=== PATIENT | male | born 1995 | race Caucasian/White ===

== ENCOUNTER 2023-11-24 23:44 | Emergency (ER) | payer OTHER ==
[~2023-11-24] VITALS: Ht 177.8 cm; Wt 134.0 kg
[2023-11-24 23:59] VITALS: BP 122/77; PULSE 76; RESP 20; TEMP 98.4; O2SAT 98
== END 2023-11-25 00:56 | disposition home or self-care (01) ==
LOC: ER 23:44
DX: K62.89 Other specified diseases of anus and rectum (principal)
CPT/HCPCS: 99283

== ENCOUNTER 2024-04-15 21:11 | Emergency (ER) | payer MEDICAID ==
[~2024-04-15] VITALS: Ht 177.8 cm; Wt 127.5 kg
[2024-04-15 21:17] VITALS: BP 150/100; PULSE 62; O2SAT 98
[2024-04-15] MEDS ORDERED: CEPH-585 PO (21:56)
[2024-04-15] MEDS ORDERED: SULF1TAB49 PO (21:56)
[2024-04-15] MEDS ORDERED: NAPR-56 PO (21:56)
[2024-04-15 22:06] VITALS: RESP 16; TEMP 97.7
== END 2024-04-15 22:09 | disposition home or self-care (01) ==
LOC: ER 21:11
DX: K65.1 Peritoneal abscess (principal)
CPT/HCPCS: 99283

== ENCOUNTER 2024-09-30 23:49 | Emergency (ER) | payer MEDICAID, OTHER ==
[~2024-09-30] VITALS: Ht 175.3 cm; Wt 131.8 kg
[2024-09-30 23:49] VITALS: TEMP 98.4
[~2024-09-30 23:49] MED LIST: CEPH-585 PO
[2024-10-01] MEDS: ondansetron/PF 4mg/2ml inj IV ONE (01:38)
[2024-10-01] MEDS: normal saline 1000ml 1,000 ML IV ONE (01:38)
[2024-10-01 01:42] LABS: BASOPHILS % (AUTO) 0.5 % (0-1); EOSINOPHILS # (AUTO) 0.2 X10'3 (0-0.9); EOSINOPHILS % (AUTO) 1.8 % (0-6); HEMATOCRIT 41.3 % (42.0-52.0); HEMOGLOBIN 13.8 g/dl (14.0-17.9); LYMPHOCYTES # (AUTO) 1.9 X10'3 (1.1-4.8); LYMPHOCYTES % (AUTO) 20.1 % (21-51); MEAN CORPUSCULAR HEMOGLOBIN 26.7 PG (27.0-31.0); MEAN CORPUSCULAR HGB CONC 33.3 g/dL (33.0-36.5); MEAN CORPUSCULAR VOLUME 80.2 FL (78-98); MEAN PLATELET VOLUME 8.2 FL (7.4-10.4); MONOCYTES % (AUTO) 10.5 % (2-12); NEUTROPHILS # (AUTO) 6.5 X10'3 (1.8-7.7); NEUTROPHILS % (AUTO) 67.1 % (42-75); PLATELET COUNT 221 X10'3 (140-440); RED BLOOD COUNT 5.15 X10'6 (4.70-6.10); WHITE BLOOD COUNT 9.7 X10'3 (4.5-11.0)
[2024-10-01 01:57] LABS: ALANINE AMINOTRANSFERASE 45 U/L (12-78); ALBUMIN 3.8 G/DL (3.4-5.0); ALKALINE PHOSPHATASE 70 IU/L (46-116); ANION GAP 9 (8-16); ASPARTATE AMINO TRANSFERASE 25 U/L (10-37); BILIRUBIN,TOTAL 0.3 MG/DL (0.1-1.0); BLOOD UREA NITROGEN 18 MG/DL (7-18); BUN/CREATININE RATIO 17.3 (10.0-20.0); CALCIUM 8.4 MG/DL (8.5-10.1); CHLORIDE 105 MMOL/L (99-107); CREATININE 1.04 MG/DL (0.60-1.10); GLUCOSE 96 MG/DL (70-104); LIPASE 24 U/L (16-77); POTASSIUM 3.7 MMOL/L (3.5-5.1); SODIUM 141 MMOL/L (135-145); TOTAL CARBON DIOXIDE 27.2 MMOL/L (24-32); TOTAL PROTEIN 7.6 G/DL (6.4-8.2); eCRCL 105 ML/MIN; eGFR 84 ML/MIN
[2024-10-01 03:24] LABS: BILIRUBIN,URINE NEGATIVE (Neg); CLARITY,URINE SLIGHTLY CLOUDY (Clear); COLOR,URINE YELLOW (Yellow); GLUCOSE, URINE NEGATIVE (Neg); KETONES,URINE NEGATIVE (Neg); LEUKOCYTE ESTERASE ,URINE NEGATIVE (Neg); NITRITES, URINE NEGATIVE (Neg); OCCULT BLOOD,URINE NEGATIVE (Neg); PROTEIN,URINE NEGATIVE (Neg); UROBILINOGEN,URINE 0.2 E.U/dL (0.2-1.0)
[2024-10-01 03:48] LABS: UA COLLECTION TYPE CLN CATCH MIDSTREAM
[2024-10-01 03:49] LABS: BACTERIA,URINE FEW /HPF (Neg); MUCUS STRANDS FEW /LPF (Neg); RBC,URINE 0-2 /HPF (0-2); SQUAMOUS EPITHELIAL CELL,UR MANY /LPF (FEW)
[2024-10-01] MEDS ORDERED: ONDA-245 PO (03:57)
[2024-10-01 04:18] VITALS: BP 138/83; PULSE 70; RESP 16; O2SAT 98
== END 2024-10-01 04:23 | disposition home or self-care (01) ==
LOC: ER 23:49
DX: K52.9 Noninfective gastroenteritis and colitis, unspecified (principal); Z79.2 Long term (current) use of antibiotics
CPT/HCPCS: 36415; 76700; 80053; 81001; 83690; 84145; 85025; 96361; 96374; 99285; J2405; J7030

== ENCOUNTER 2025-03-07 19:40 | Emergency (ER) | payer MEDICAID, OTHER ==
[~2025-03-07] VITALS: Ht 177.8 cm; Wt 132.0 kg
[~2025-03-07 19:40] MED LIST changes: +ONDA-245 PO
[2025-03-07 20:21] LABS: BASOPHILS # (AUTO) 0.1 X10'3 (0-0.2); BASOPHILS % (AUTO) 0.5 % (0-1); EOSINOPHILS % (AUTO) 0.3 % (0-6); HEMATOCRIT 43.8 % (42.0-52.0); HEMOGLOBIN 14.6 g/dl (14.0-17.9); LYMPHOCYTES # (AUTO) 2.7 X10'3 (1.1-4.8); LYMPHOCYTES % (AUTO) 22.3 % (21-51); MEAN CORPUSCULAR HEMOGLOBIN 26.5 PG (27.0-31.0); MEAN CORPUSCULAR HGB CONC 33.2 g/dL (33.0-36.5); MEAN CORPUSCULAR VOLUME 79.6 FL (78-98); MONOCYTES # (AUTO) 0.9 X10'3 (0-0.9); NEUTROPHILS # (AUTO) 8.5 X10'3 (1.8-7.7); NEUTROPHILS % (AUTO) 69.9 % (42-75); PLATELET COUNT 216 X10'3 (140-440); RED BLOOD COUNT 5.51 X10'6 (4.70-6.10); RED CELL DISTRIBUTION WIDTH 14.2 % (11.5-14.5); WHITE BLOOD COUNT 12.2 X10'3 (4.5-11.0)
[2025-03-07 20:41] LABS: BILIRUBIN,URINE SMALL (Neg); CLARITY,URINE CLOUDY (Clear); COLOR,URINE YELLOW (Yellow); GLUCOSE, URINE NEGATIVE (Neg); KETONES,URINE 15 mg/dl (Neg); LEUKOCYTE ESTERASE ,URINE TRACE (Neg); NITRITES, URINE NEGATIVE (Neg); OCCULT BLOOD,URINE NEGATIVE (Neg); PROTEIN,URINE TRACE mg/dl (Neg); UROBILINOGEN,URINE 0.2 E.U/dL (0.2-1.0)
[2025-03-07 20:46] LABS: ALBUMIN 4.3 G/DL (3.4-5.0); ANION GAP 14 (8-16); BLOOD UREA NITROGEN 14 MG/DL (7-18); BUN/CREATININE RATIO 10.9 (10.0-20.0); CALCIUM 9.4 MG/DL (8.5-10.1); CHLORIDE 109 MMOL/L (99-107); CREATININE 1.28 MG/DL (0.60-1.10); GLUCOSE 92 MG/DL (70-104); POTASSIUM 3.3 MMOL/L (3.5-5.1); SODIUM 146 MMOL/L (135-145); THYROID STIMULATING HORMONE 2.06 ulU/ml (0.34-4.50); eCRCL 85 ML/MIN; eGFR 66 ML/MIN
[2025-03-07 20:46] LABS: UA COLLECTION TYPE CLN CATCH MIDSTREAM
[2025-03-07 20:47] LABS: ETHANOL < 10 MG/DL (<10)
[2025-03-07 20:49] LABS: BACTERIA,URINE 1+ /HPF (Neg); MUCUS STRANDS MANY /LPF (Neg); RBC,URINE 0-2 /HPF (0-2); SQUAMOUS EPITHELIAL CELL,UR FEW /LPF (FEW); WBC,URINE 20-30 /HPF (0-4)
[2025-03-07 20:53] LABS: URINE AMPHETAMINE SCREEN NEGATIVE (Neg); URINE BARBITUATE SCREEN NEGATIVE (Neg); URINE BENZODIAZEPINES SCREEN NEGATIVE (Neg); URINE CANNABINOID SCREEN POSITIVE (Neg); URINE COCAINE SCREEN NEGATIVE (Neg); URINE METHADONE SCREEN NEGATIVE (Neg); URINE OPIATE SCREEN NEGATIVE (Neg); URINE PHENCYCLIDINE SCREEN NEGATIVE (Neg)
[2025-03-07] MEDS ORDERED: NO HOME MEDS (21:05)
--- NOTE | 2025-03-07 21:42 | Physician Documentation ---
History of Present Illness ~ Chief Complaint: Mental Health Eval Stated Complaint: 5150 Time Seen by MD: 21:41 Primary Medical Doctor: Magdaleno Bell Mode of Arrival: Police HPI Patient presents to the emergency room brought in by police officers on a 5150 hold. Patient [place] Talking about church but oriented. He has no complaints at this time Medication Reconciliation Allergies: Coded Allergies: No Known Allergies (Unverified , 09/30/24) Miscellaneous Medications Home Med List (No Home Medications), (Reported) Discontinued Medications Cephalexin*Monohydrate* (Keflex*), 1 CAP PO QID Discontinued Reason: patient no longer taking Ondansetron 8mg ODT (Ondansetron Odt), 1 TAB PO Q6H Discontinued Reason: patient no longer taking Past Medical History Past Medical History: No Pertinent History Past Surgical History: no surgical history Alcohol Use: None Drug Use: none Lives In: Home Occupation: employed Review of Systems ROS All review of systems negative except as per HPI Physical Exam Vital Signs: Temperature: 99.5, Source: Oral, Heart Rate: 78, Respiratory Rate: 16, BP: 156/105, Pulse Oximetry: 98, Weight: 132.000 Oxygen Flow Rate: 0 Physical Exam General: Patient is sleeping and easily aroused, oriented x4 in no acute distress and well appearing.~ Head: Normocephalic and atraumatic. Eyes: Conjunctival normal. EOMI. PERRL. ENT: Mucous membranes moist. Neck: Supple, trachea is midline. Chest: Clear to auscultation bilaterally without rales, rhonchi, or wheezes. There is no accessory muscle use or retractions. Cardiac: RRR without murmurs, gallops, or rubs. Psych: Cooperative, good eye contact, normal affect Progress Results/Orders Results/Orders Orders - EMIGDIO ROMO MD Med Rec (03/07/25 19:58) Close Observation Level (03/07/25 19:58) Covid19 Binax Poc Result Entry (03/07/25 19:58) Regular Diet (03/08/25 Breakfast) Completed Orders - EMIGDIO ROMO MD Cbc/Diff (03/07/25 19:58) Drug Screen, Urine (03/07/25 19:58) Ethanol (03/07/25 19:58) TSH (03/07/25 19:58) BMP (03/07/25 19:58) Ua With Microscopic (03/07/25 18:15) Vital Signs 03/07/25 03/07/25 20:21 20:54 Temp 99.5 Pulse 78 Resp 16 16 B/P (MAP) 156/105 Pulse Ox 98 O2 Flow Rate 0 Laboratory Tests Test 03/07/25 18:15 03/07/25 20:05 03/07/25 20:10 Urine Specimen Description Cln catch midstream Urine Color Yellow Urine Clarity Cloudy Urine pH 6.0 Urine Specific [place] >=1.030 Urine Protein Trace Urine Glucose (UA) Negative Urine Ketones 15 H Urine Occult Blood Negative Urine Nitrite Negative Urine Bilirubin Small Urine Urobilinogen 0.2 Urine Leukocyte Esterase Trace H Urine RBC 0-2 Urine WBC 20-30 H Urine Squamous Epithelial Cells Few Urine Bacteria 1+ Urine Mucus Many Volume Urine Centrifuged 10 ml Urine Comment Urine Opiates Screen Negative Urine Methadone Screen Negative Urine Fentanyl Screen Negative Urine Barbiturates Screen Negative Urine Phencyclidine Screen Negative Urine Amphetamines Screen Negative Urine Benzodiazepines Screen Negative Urine Cocaine Screen Negative Urine Cannabinoids Screen Positive Drug Screen Comment White Blood Count 12.2 H Red Blood Count 5.51 Hemoglobin 14.6 Hematocrit 43.8 Mean Corpuscular Volume 79.6 Mean Corpuscular Hemoglobin 26.5 L Mean Corpuscular Hemoglobin Concent 33.2 Red Cell Distribution Width 14.2 Platelet Count 216 Mean Platelet Volume 9.0 Neutrophils (%) (Auto) 69.9 Lymphocytes (%) (Auto) 22.3 Monocytes (%) (Auto) 7.0 Eosinophils (%) (Auto) 0.3 Basophils (%) (Auto) 0.5 Neutrophils # (Auto) 8.5 H Lymphocytes # (Auto) 2.7 Monocytes # (Auto) 0.9 Eosinophils # (Auto) 0.0 Basophils # (Auto) 0.1 CBC Comment Sodium Level 146 H Potassium Level 3.3 L Chloride Level 109 H Carbon Dioxide Level 23.0 L Anion Gap 14 Blood Urea Nitrogen 14 Creatinine 1.28 H Estimated GFR/1.73 m2 66 BUN/Creatinine Ratio 10.9 Glucose Level 92 Calcium Level 9.4 Albumin 4.3 Thyroid Stimulating Hormone (TSH) 2.06 Chemistry Comments Ethyl Alcohol Level < 10 SARS-CoV-2 Antigen (Rapid) Negative Medical Decision Making Findings Patient presented to the emergency room brought in on 5150 hold. Differentials include but are not limited to schizophrenia, acute psychotic break, electrolyte disturbances, substance abuse therefore labs ordered. Patient is mildly dehydrated. He is tolerating oral fluids. Possible urinary tract infection and we will treat him for this. Mildly low potassium and we will supplement this. No other evidence for major pathologic derangements and patient is medically cleared for psychiatric evaluation Departure Disposition: 30 STILL A PATIENT Impression: Primary Impression: Hypokalemia Additional Impressions: Urinary tract infection Psychosis Condition: Guarded Referrals: NO PRIMARY CARE PROVIDER (PCP) Signature Scribe Signature: No scribe Attestation: The note accurately reflects work and decisions made by me.mEigdio Romo MD 03/07/25 21:58 EMIGDIO ROMO MD March 07, 2025 21:42
[2025-03-07] MEDS: potassium Cl 20 mEq SR tablet PO STA (21:58)
[2025-03-07] MEDS: cephalexin 250mg capsule PO ONE (22:00)
[2025-03-08] MEDS: diphenhydrAMINE 50 mg/ml inj IM ONE (00:24)
[2025-03-08] MEDS: MIDAZolam 5mg/ml 2ml vial IM ONE (00:24)
[2025-03-08] MEDS: haloperidol lactate 5mg/ml inj IM ONE (00:25)
[2025-03-08 16:50] VITALS: BP 121/73; PULSE 55; RESP 14; TEMP 97.6; O2SAT 99
== END 2025-03-08 15:05 | disposition left against medical advice (07) ==
LOC: ER 19:40
DX: E87.6 Hypokalemia (principal); F29 Unspecified psychosis not due to a substance or known physiological condition; N39.0 Urinary tract infection, site not specified; Z20.822 Contact with and (suspected) exposure to COVID-19
CPT/HCPCS: 36415; 80048; 80305; 80320; 81001; 84443; 85025; 87811; 96372; 99285; J1200; J1630; J2250

== ENCOUNTER 2025-03-22 22:30 | Emergency (ER) | payer MEDICAID ==
[~2025-03-22] VITALS: Ht 175.3 cm; Wt 142.2 kg
[~2025-03-22 22:30] MED LIST changes: -CEPH-585 PO; +LOSA50TA64 PO; -ONDA-245 PO
[2025-03-22 22:59] VITALS: BP 158/82; PULSE 80; RESP 16; TEMP 97.7; O2SAT 98
--- NOTE | 2025-03-23 00:09 | RADIOLOGY REPORT ---
CLINICAL INDICATION: FOOT PAIN TECHNIQUE: DI FOOT, COMPLETE (3VW MIN) Comparison: None FINDINGS/IMPRESSION: : There is no evidence of acute fracture or dislocation. Soft tissues are unremarkable.
== END 2025-03-23 03:20 | disposition left against medical advice (07) ==
LOC: ER 22:31
DX: M79.672 Pain in left foot (principal); Z53.21 Procedure and treatment not carried out due to patient leaving prior to being seen by health care provider
CPT/HCPCS: 73630

== ENCOUNTER 2025-04-05 23:20 | Emergency (ER) | payer MEDICAID ==
[~2025-04-05] VITALS: Ht 175.3 cm; Wt 138.6 kg
--- NOTE | 2025-04-05 23:44 | Physician Documentation ---
History of Present Illness ~ Chief Complaint: See Chief Complaint Stated Complaint: REACTION TO MEDICATION Time Seen by MD: 23:35 [facility] Patient presents to the emergency room for evaluation of agitation. He has been upset because his psychiatric doctor increased his lamotrigine this evening and he woke up from a nap he was very irritable which made him very mad at her. He denies any SI/HI in his not want to hurt anybody. He states he is just feeling very agitated and he needs to calm down in his here for help. Medication Reconciliation Allergies: Coded Allergies: No Known Allergies (Unverified , 03/08/25) Scheduled Losartan Potassium (Losartan Potassium), 50 MG PO DAILY Past Medical History Past Medical History: No Pertinent History Past Surgical History: no surgical history Patient History: FH: diabetes mellitus Maternal grandfather FH: factor V Leiden mutation Maternal grandfather Alcohol Use: None Drug Use: none Lives In: Home Occupation: employed Review of Systems ROS All review of systems negative except as per HPI Physical Exam Vital Signs: Temperature: 98.0, Heart Rate: 74, Respiratory Rate: 16, BP: 144/86, Pulse Oximetry: 99, Weight: 138.640 Oxygen Flow Rate: 0 Physical Exam General: Patient is awake, alert, oriented x4 in no acute distress Head: Normocephalic and atraumatic. Eyes: Conjunctival normal. EOMI. PERRL. ENT: Mucous membranes moist. Neck: Supple, trachea is midline. Chest: Clear to auscultation bilaterally without rales, rhonchi, or wheezes. There is no accessory muscle use or retractions. Cardiac: RRR without murmurs, gallops, or rubs. Psych: Cooperative, poor eye contact, irritable Progress Results/Orders Results/Orders Completed Orders - EMIGDIO ROMO MD Midazolam 5 Mg/Ml 2ml Inj (Versed 5 Mg/M (04/05/25 23:40) Medications Received in ER Medications (Trade) Dose Ordered Sig/Libby Route PRN Reason Start Time Stop Time Status Last Admin Dose Admin (Versed 5 MG/ML 2ML inj) 8 mg ONCE ONCE IM 04/05/25 23:40 04/05/25 23:52 DC 04/05/25 23:55 8 MG Vital Signs 04/05/25 23:29 Temp 98.0 Pulse 74 Resp 16 B/P (MAP) 144/86 Pulse Ox 99 O2 Flow Rate 0 Medical Decision Making Findings Patient presents to the emergency room for evaluation of agitation. We have treated his agitation and he is feeling much better. I do not feel he is gravely disabled and he had not feel he requires a 5150. I do not feel emergent labs or imaging is necessary Departure Disposition: HOME / SELF CARE / HOMELESS Impression: Primary Impression: Agitation Condition: Improved Discharge Instructions: Managing Anger, Adult Additional Instructions: Follow up with your doctor regarding medication adjustments Referrals: NO PRIMARY CARE PROVIDER (PCP) Signature Scribe Signature: No scribe Attestation: The note accurately reflects work and decisions made by me.Emigdio Romo MD 04/06/25 00:22 EMIGDIO ROMO MD Apr 05, 2025 23:44
[2025-04-05] MEDS: MIDAZolam 5mg/ml 2ml vial IM ONE (23:55)
[2025-04-06 00:44] VITALS: BP 130/86; PULSE 82; RESP 12; TEMP 98; O2SAT 96
== END 2025-04-06 00:43 | disposition home or self-care (01) ==
LOC: ER 23:21
DX: R45.1 Restlessness and agitation (principal); Z79.899 Other long term (current) drug therapy
CPT/HCPCS: 96372; 99283; J2250

== ENCOUNTER 2025-04-14 13:09 | Inpatient (IN) | payer MEDICAID ==
[~2025-04-14] VITALS: Ht 175.3 cm; Wt 139.4 kg
[2025-04-14 13:48] LABS: MEAN PLATELET VOLUME 8.8 FL (7.4-10.4); RED CELL DISTRIBUTION WIDTH 15.3 % (11.5-14.5)
[2025-04-14 14:05] LABS: CREATININE 1.23 MG/DL (0.60-1.10); ETHANOL < 10 MG/DL (<10); TOTAL CARBON DIOXIDE 27.2 MMOL/L (24-32); eCRCL 89 ML/MIN; eGFR 70 ML/MIN
--- NOTE | 2025-04-14 14:15 | RADIOLOGY REPORT ---
CT CT HEAD Indication: Strangulation EXAM DATE: 04/14/2025 01:45 PM COMPARISON: None TECHNIQUE:CT of the head, neck without intravenous contrast. RADIATION DOSE: CTDIvol: 50 mGy, DLP: 843 mGy*cm FINDINGS: Head: There is no intracranial hemorrhage. There is no extra-axial fluid, mass, mass effect or midline shif t. The ventricles are midline and normal in size. Basilar cisterns are patent. Caputo-white differentia tion is maintained. The paranasal sinuses and mastoids are well-pneumatized. Imaged portion of the orbits are unremarkabl e. Neck: Limited evaluation of the neck without contrast. Parotid, software technician and parapharyngeal spaces preserved. Submandibular glands unremarkable. Thyroid g land unremarkable. No prevertebral / retropharyngeal edema. Epiglottis, aryepiglottic folds unremarkable. Mild cervical degenerative disc disease. IMPRESSION: No intracranial hemorrhage or mass effect. No evidence for neck hematoma.
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
[2025-04-14 15:11] LABS: LEUKOCYTE ESTERASE ,URINE NEGATIVE (Neg); NITRITES, URINE NEGATIVE (Neg); OCCULT BLOOD,URINE NEGATIVE (Neg)
[2025-04-14 15:13] LABS: UA COLLECTION TYPE CLN CATCH MIDSTREAM
[2025-04-14 15:26] LABS: SQUAMOUS EPITHELIAL CELL,UR MANY /LPF (FEW)
--- NOTE | 2025-04-14 15:27 | Physician Documentation ---
History of Present Illness ~ Chief Complaint: 5150 Stated Complaint: 5150 Primary Medical Doctor: Zina Bell Mode of Arrival: POV HPI d Day of Onset: Apr 14, 2025 Medication Reconciliation Allergies: Coded Allergies: No Known Allergies (Unverified , 04/14/25) Scheduled Lamotrigine (LaMICtal tablet), 2 TAB PO DAILY, (Reported) Losartan* (Cozaar*), 1 TAB PO DAILY, (Reported) Naproxen (Naproxen), 1 TAB PO Q12H, (Reported) Tirzepatide (Zepbound), 0.5 ML SQ Q7D, (Reported) Discontinued Medications Losartan Potassium (Losartan Potassium), 50 MG PO DAILY Discontinued Reason: ADR (Adverse Drug Rxn) Past Medical History Past Medical History: No Pertinent History Past Surgical History: no surgical history Patient History: FH: diabetes mellitus Maternal grandfather FH: factor V Leiden mutation Maternal grandfather Alcohol Use: None Drug Use: none Lives In: Home Occupation: employed Physical Exam Vital Signs: Temperature: 98.6, Heart Rate: 77, Respiratory Rate: 16, BP: 150/95, Pulse Oximetry: 97, Weight: 114.100 Oxygen Flow Rate: 0 Progress Results/Orders Results/Orders Vital Signs 04/14/25 04/14/25 04/14/25 13:16 15:07 17:02 Temp 98.6 97.0 Pulse 77 64 Resp 16 16 B/P (MAP) 150/95 118/84 (95) Pulse Ox 97 97 O2 Flow Rate 0 Laboratory Tests Test 04/14/25 13:34 04/14/25 14:55 White Blood Count 7.8 Red Blood Count 5.40 Hemoglobin 14.2 Hematocrit 42.7 Mean Corpuscular Volume 79.0 Mean Corpuscular Hemoglobin 26.3 L Mean Corpuscular Hemoglobin Concent 33.2 Red Cell Distribution Width 15.3 H Platelet Count 262 Mean Platelet Volume 8.8 Neutrophils (%) (Auto) 62.3 Lymphocytes (%) (Auto) 29.2 Monocytes (%) (Auto) 6.8 Eosinophils (%) (Auto) 1.0 Basophils (%) (Auto) 0.7 Neutrophils # (Auto) 4.9 Lymphocytes # (Auto) 2.3 Monocytes # (Auto) 0.5 Eosinophils # (Auto) 0.1 Basophils # (Auto) 0.1 CBC Comment Sodium Level 140 Potassium Level 3.9 Chloride Level 106 Carbon Dioxide Level 27.2 Anion Gap 7 L Blood Urea Nitrogen 14 Creatinine 1.23 H Estimated GFR/1.73 m2 70 BUN/Creatinine Ratio 11.4 Glucose Level 94 Calcium Level 8.6 Albumin 3.8 Thyroid Stimulating Hormone (TSH) 1.68 Chemistry Comments Salicylates Level 1.0 L Acetaminophen Level < 2.0 L Ethyl Alcohol Level < 10 Urine Specimen Description Cln catch midstream Urine Color Yellow Urine Clarity Slightly cloudy Urine pH 6.0 Urine Specific [place] 1.025 Urine Protein Negative Urine Glucose (UA) Negative Urine Ketones Negative Urine Occult Blood Negative Urine Nitrite Negative Urine Bilirubin Negative Urine Urobilinogen 0.2 Urine Leukocyte Esterase Negative Urine RBC 0-2 Urine WBC 5-10 H Urine Squamous Epithelial Cells Many Urine Transitional Epithelial Cells Few Urine Bacteria Few Volume Urine Centrifuged 10 ml Urine Comment Urine Opiates Screen Negative Urine Methadone Screen Negative Urine Fentanyl Screen Negative Urine Barbiturates Screen Negative Urine Phencyclidine Screen Negative Urine Amphetamines Screen Negative Urine Benzodiazepines Screen Negative Urine Cocaine Screen Negative Urine Cannabinoids Screen Positive Drug Screen Comment SARS-CoV-2 Antigen (Rapid) Negative Medical Decision Making Findings I was asked to medically clear this patient, this patient was seen by Dr. SAENZ Departure Impression: Primary Impression: Depression Additional Impression: Suicidal ideation Additional Instructions: Transfer orders for [facility]: At this time there is no evidence of an emergent medical condition that would preclude (admission/transfer) to a psychiatric unit via [facility] protocol for further psychiatric, as well as medical evaluation and treatment. At this time I have no reason to believe that transfer via [facility] protocol would have serious medical compromise in the patient's health. Referrals: NO PRIMARY CARE PROVIDER (PCP) Signature Scribe Signature: d Attestation: Scribed for Samuel Saenz MD by Merrill Sumner NP . 04/14/25 23:21 MERRILL AUGUSTIN NP Apr 14, 2025 15:27
[2025-04-14 16:03] LABS: URINE AMPHETAMINE SCREEN NEGATIVE (Neg); URINE BARBITUATE SCREEN NEGATIVE (Neg); URINE BENZODIAZEPINES SCREEN NEGATIVE (Neg); URINE CANNABINOID SCREEN POSITIVE (Neg); URINE COCAINE SCREEN NEGATIVE (Neg); URINE METHADONE SCREEN NEGATIVE (Neg); URINE OPIATE SCREEN NEGATIVE (Neg); URINE PHENCYCLIDINE SCREEN NEGATIVE (Neg)
[2025-04-14] MEDS ORDERED: TIRZ2.5P3 SQ (18:47)
[2025-04-14] MEDS ORDERED: LAMO25TA94 PO (18:47)
[2025-04-14] MEDS ORDERED: LOSA-416 PO (18:47)
[2025-04-14] MEDS ORDERED: NAPR-1480 PO (18:47)
[2025-04-14 21:51] VITALS: BP 132/92; PULSE 74; RESP 18; TEMP 96.8; O2SAT 98
[2025-04-14 22:30] VITALS: RESP 18; O2SAT 98
[2025-04-14] MEDS ORDERED: mag hydrox/Alum hydrox/simeth 30ml oral suspension PO PRN (22:30)
[2025-04-14] MEDS ORDERED: loperamide 2mg capsule PO PRN (22:30)
[2025-04-15 07:00] VITALS: RESP 16; O2SAT 98
[2025-04-15 07:01] LABS: MEAN PLATELET VOLUME 9.0 FL (7.4-10.4); RED CELL DISTRIBUTION WIDTH 15.0 % (11.5-14.5)
[2025-04-15 07:54] LABS: CHOL/HDL RATIO 3.6 (0.00-4.99); CREATININE 1.04 MG/DL (0.60-1.10); LDL CHOLESTEROL 73 MG/DL (50-100); TOTAL CARBON DIOXIDE 26.0 MMOL/L (24-32); eCRCL 105 ML/MIN; eGFR 84 ML/MIN
[2025-04-15 08:00] VITALS: BP 134/95; PULSE 60; RESP 16; TEMP 97.4; O2SAT 98
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
--- NOTE | 2025-04-15 13:32 | HISTORY AND PHYSICAL ---
History & Physical Providers to ~ History of Present Illness Reason for Admit\Complaint: SI, 5149 History of Present Illness Juan Sung is a 29-year-old female with past medical history of PTSD, MDD, SI, hypertension who was admitted to [facility] on 5149 due to suicidal ideation. Patient reports intermittent SI but denies HI, prior ND/CAD, CVA, cardiac arrhythmia, DVT/PE, or GIB. Patient denies chest pain, palpitations, shortness of breath, abdominal pain, n/v/d, fever, chills, dysuria. Vss, labs unremarkable. Allergies: Coded Allergies: milk (Verified Allergy, Unknown, 04/15/25) Home Medications Home Medications Active Reported Zepbound (Tirzepatide) 2.5 Mg/0.5 Ml Pen.injctr 0.5 Ml SQ Q7D 30 Days Thursday morning LaMICtal tablet (Lamotrigine) 25 Mg Tablet 2 Tab PO DAILY Naproxen 500 Mg Tablet.dr 1 Tab PO Q12H with food Cozaar* (Losartan Potassium) 50 Mg Tablet 1 Tab PO DAILY Past Medical History Past Medical History PTSD MDD SI Psychogenic nonepileptic seizures Prediabetes Hypertension Past Surgical History Surgical History Comment Denies Family History Family History: FH: diabetes mellitus Maternal grandfather FH: factor V Leiden mutation Maternal grandfather Past Social History Social History Comment Alcohol: Denies Tobacco: Denies Illicit drug use: Cannabis Living situation: Lives at home with spouse ROS ROS Other than positives in HPI, all 14 review of systems are negative Exam Vitals: Vital Signs Date Time Temp Pulse Resp B/P (MAP) Pulse Ox O2 Delivery O2 Flow Rate FiO2 04/15/25 08:00 97.4 60 16 134/95 (108) 98 Room Air 04/15/25 07:00 0.0 General: A&Ox 3, NAD HEENT: Normocephalic, PERRLA Neck: Supple, trachea midline, no JVD Chest: Clear to auscultation bilaterally Cardiovascular: RRR, S1&S2 Abdomen: Soft and nontender Extremities: No cyanosis/clubbing/or edema Central Nervous System: CN II-XII intact, no focal deficits Musculoskeletal: No paraspinal muscle tenderness, no muscle spasm Skin: Warm and intact Diagnostic Data Last Recorded Lab Results: 04/15/2562504/15/25625 Additional Plan SI MDD PTSD Psychogenic seizures Prediabetes Hypertension Class III obesity -A1c 5.5, LDL 73 -continue home losartan -continue psychiatric managed per psychiatry team -Hospitalist team will continue to follow for patient's medical needs Date of Service: Apr 15, 2025 Billing Provider: CECI VILLEDA Common Visit Codes: [id number] INP/OBS CARE (HIGH) CECI VILLEDA Apr 15, 2025 13:32
[2025-04-15 19:00] VITALS: RESP 16; O2SAT 97
[2025-04-15 20:00] VITALS: BP 136/83; PULSE 72; RESP 16; TEMP 97.6; O2SAT 97
[2025-04-15] MEDS: magnesium hydroxide 30ml (MOM) UD suspension PO PRN (21:09)
[2025-04-16 07:30] VITALS: BP 142/94; PULSE 112; RESP 18; TEMP 98; O2SAT 97
[2025-04-16 19:00] VITALS: RESP 18; O2SAT 97
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
[2025-04-16 19:45] VITALS: BP 143/96; PULSE 105; RESP 18; TEMP 97.4; O2SAT 97
[2025-04-17 08:00] VITALS: RESP 14; O2SAT 96
[2025-04-17 09:00] VITALS: BP 135/91; PULSE 98; RESP 14; TEMP 96.4
[2025-04-17 09:15] VITALS: BP 135/91; PULSE 98; RESP 14; TEMP 96.4
[2025-04-17] MEDS: TIRZEPATIDE 2.5 MG/0.5 ML SQ SCH (09:27)
[2025-04-17 19:00] VITALS: RESP 20; O2SAT 98
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
[2025-04-17 20:00] VITALS: BP 143/87; PULSE 80; RESP 20; TEMP 97.6
--- NOTE | 2025-04-17 20:03 | PROGRESS NOTE- Residence ---
Progress Note - Resident Providers to CC Resident Creating Document: ALEXANDER VEE CC: EMERALD OSMAN MD ~ Antibiotic Timeout Antibiotic Ordered?: No Subjective Patient was seen and examined at bedside in [facility] unit. He is requesting milk of Mag for constipation and moisturizing lotion for lower extremity skin dryness Objective Vital Signs Date Time Temp Pulse Resp B/P (MAP) Pulse Ox O2 Delivery O2 Flow Rate FiO2 04/17/25 09:15 96.4 98 14 135/91 (106) Room Air 04/17/25 08:00 96 04/16/25 19:00 0.0 Result Diagram: 04/15/2562504/15/25625 General: awake, alert oriented to place, time, and person HEENT: No pallor present, no icterus, moist mucous membranes Neck: No masses and tenderness Resp: Unlabored. Lungs clear to auscultation bilaterally. Chest: Normal expansion Cardiovascular: Regular Rate and rhythm, normal S1 and S2 without murmur, rub or gallop Abdomen: Soft and nontender, no organomegaly, no guarding and rigidity, bowel sounds present Neuro: No focal weakness in the upper and lower limb muscles, power of the muscles 5/5 bilateral upper and lower extremities, normal reflexes bilaterally. Cranial nerves intact Extremities: No cyanosis,clubbing or edema Skin: Significantly dry skin in lower extremities Psych: Cooperative with care Plan Plan SI MDD PTSD Psychogenic seizures Prediabetes Hypertension Class III obesity -A1c 5.5, LDL 73 -continue home losartan -continue psychiatric managed per psychiatry team -Hospitalist team will continue to follow for patient's medical needs Constipation Skin dryness/eczema We will order milk of Mag Start moisturizing lotion Alexander Masterson MD Internal Medicine Resident PGY-1 Date of Service: Apr 17, 2025 Billing Provider: EMERALD OSMAN MD, LEONARDO LUIS Apr 17, 2025 20:03
[2025-04-18 07:00] VITALS: BP 109/76; PULSE 88; RESP 16; TEMP 97; O2SAT 98
[2025-04-18] MEDS: haloperidol lactate 5mg/ml inj ONE (10:03)
[2025-04-18] MEDS: haloperidol lactate 5mg/ml inj IM ONE (10:04)
[2025-04-18 11:02] VITALS: BP 151/98; PULSE 88
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
[2025-04-18] MEDS: magnesium hydroxide 30ml (MOM) UD suspension PO PRN (18:06)
[2025-04-18 19:00] VITALS: RESP 18; O2SAT 98
[2025-04-18 19:33] VITALS: BP 163/91; PULSE 91; RESP 18; TEMP 97.6; O2SAT 98
[2025-04-19 07:00] VITALS: RESP 16; O2SAT 97
[2025-04-19 07:30] VITALS: BP 176/108; PULSE 96; RESP 16; TEMP 97; O2SAT 97
[2025-04-19 08:30] VITALS: BP 136/69; PULSE 72
--- NOTE | 2025-04-19 15:32 | PROGRESS NOTE ---
Daily Progress Note Providers to CC ~ Antibiotic Timeout Antibiotic Ordered?: No Subjective No new complaints, patient is seen resting comfortably , Objective Vital Signs Date Time Temp Pulse Resp B/P (MAP) Pulse Ox O2 Delivery O2 Flow Rate FiO2 04/19/25 08:30 72 136/69 (91) 04/19/25 07:30 97.0 16 97 Room Air 04/16/25 19:00 0.0 Result Diagram: 04/15/2562504/15/25 06 Awake alert oriented HEENT normocephalic atraumatic EOMI, Neck supple, no JVD Chest Clear to auscultation, no wheezes crackles or rhonchi Heart RRR Abdomen soft , nontender no organomegaly Extremities No C/C/E Neuro exam : Nonfocal , moves all four extremities Other Results Medications reviewed Problem\Assessment\Plan 29 year old male admitted at [facility]. 1. SI/ MDD PTSD /Psychogenic seizures: Continue treat per psych recommendations. 2. Prediabetes: -A1c 5.5, 3.Hypertension -continue home losartan -Hospitalist team will continue to follow . I will sign off.Please contact the hospitalist team for any change in patient's medical condition. Date of Service: Apr 19, 2025 Billing Provider: REDDY GARCIA MD Common Visit Codes: [id number] INP/OBS CARE(LOW) REDDY GARCIA MD Apr 19, 2025 15:32
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
[2025-04-19 19:00] VITALS: RESP 18; O2SAT 98
[2025-04-19 20:00] VITALS: BP 131/94; PULSE 60; RESP 18; TEMP 98.7; O2SAT 98
[2025-04-20 07:35] VITALS: RESP 18; O2SAT 98
[2025-04-20 08:00] VITALS: BP 131/82; PULSE 71; RESP 18; TEMP 97.1; O2SAT 98
[2025-04-20] MEDS: mag hydrox/Alum hydrox/simeth 30ml oral suspension PO PRN (17:35)
[2025-04-20 19:07] VITALS: RESP 18
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
[2025-04-20] MEDS ORDERED: LOSA-416 PO (19:38)
[2025-04-20] MEDS ORDERED: LAMO-24 PO (19:38)
[2025-04-20] MEDS ORDERED: LEVE500T PO (19:38)
[2025-04-20] MEDS ORDERED: PRAZ1CAP5 PO (19:38)
[2025-04-20 20:53] VITALS: BP 144/87; PULSE 73; RESP 16; O2SAT 99
[2025-04-21 07:00] VITALS: RESP 16; O2SAT 98
[2025-04-21 08:02] VITALS: BP 136/85; PULSE 69; RESP 16; TEMP 97.6; O2SAT 98
--- NOTE | 2025-04-21 13:38 | PROGRESS NOTE- Residence ---
Progress Note - Resident Providers to CC Resident Creating Document: MODESTA DELEON RES CC: EMERALD OSMAN MD ~ Central Line/PICC still needed: N\A Antibiotic Timeout Antibiotic Ordered?: No Subjective Patient was seen and examined at bedside in [facility] unit. No new c/o, diagnosed with HTN 2 months ago Objective Vital Signs Date Time Temp Pulse Resp B/P (MAP) Pulse Ox O2 Delivery O2 Flow Rate FiO2 04/21/25 08:02 97.6 69 16 136/85 (102) 98 Room Air 04/20/25 19:07 0.0 General: Adult male, AAO x4, obese, not in apparent distress Head: Normocephalic with an atraumatic Eyes: Pupils- 3mm, reacting to light, conjunctiva- anicteric Nose and throat: No polyps, septum- normal, no mucosal ulcers Neck: Supple, no lymphadenopathy, no carotid bruit Respiratory: No use of accessory muscles of respiration, Bilateral normal vesiscular breath sounds heard. No wheeze, rhochi or creps Cardiac: S1-S2 heard, rythm regular, no gallop/murmur Abdomen: Obese non distended, no tenderness, no organomegaly, bowel sounds- heard Extremities: no clubbing, no pedal edema, no deformities, peripheral pulses- 2+ Skin: warm and dry, no rash, no purpura Neuro: No focal deficit, gross cranial nerve exam- normal Assessment Assessment 29-year-old male with history of hypertension, severe obesity is admitted to [facility] for suicidal ideation Plan Plan SI MDD PTSD Psychogenic seizures -managed per Psychiatry Prediabetes A1c 5.5 Recheck A1c in six months Hypertension Continue losartan Patient might need workup for secondary causes of hypertension on outpatient basis Class III obesity -will benefit from weight loss drugs All labs and vitals reviewed, hospitalist service will continue to follow the patient Date of Service: Apr 21, 2025 Billing Provider: EMERALD OSMAN MD, HARIVARSHA, RES Apr 21, 2025 13:38
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
[2025-04-21] MEDS ORDERED: TRAZ-251 PO (14:17)
[2025-04-21 19:16] VITALS: RESP 16
[2025-04-21 19:20] VITALS: RESP 16
[2025-04-22 08:00] VITALS: BP 138/85; PULSE 87; RESP 16; TEMP 98.7; O2SAT 98
--- NOTE | 2025-04-23 18:54 | DISCHARGE SUMMARY ---
Discharge Summary Providers to CC ~ Discharge Summary Admission Diagnosis: DEPRESSION.SUICIDAL IDEATION Hospital Course DATE OF ADMISSION: DATE OF DISCHARGE: Discharge Diagnosis\\Comment: DEPRESSION SUICIDAL IDEATION Operations\\Procedures: NONE Consultants: MEDICAL TEAM Complications: NONE Condition on DC: Stable 2 or more antipsychotic used: No 2/more antipsychotic addressed: No Does Patient smoke: No Smoking education given.: No New Medications: Lamotrigine (Lamotrigine) 25 Mg Tablet 50 MG PO DAILY for 30 Days, #60 TAB Levetiracetam (Levetiracetam) 500 Mg Tablet 1 TAB PO Q12H for 30 Days, #60 TAB 0 Refills Prazosin Hcl (Prazosin Hcl) 1 Mg Capsule 1 MG PO HS for 30 Days, #30 CAP Trazodone HCl (Trazodone HCl) 50 Mg Tablet 50 MG PO HS PRN for Insomnia for 30 Days, #30 TAB Continued Medications: Losartan* (Cozaar*) 50 Mg Tablet 1 TAB PO DAILY for 30 Days, #30 TAB (This prescription has been renewed) Tirzepatide (Zepbound) 2.5 Mg/0.5 Ml Pen.injctr 0.5 ML SQ Q7D for 30 Days Thursday morning Discontinued Medications: Lamotrigine (LaMICtal tablet) 25 Mg Tablet 2 TAB PO DAILY, TAB 0 Refills Naproxen (Naproxen) 500 Mg Tablet.dr 1 TAB PO Q12H, TAB 0 Refills with food Discharge Summary: Patient actively seen and examined on day of discharge 04/22/2025, by myself, JOAN Escamilla. The patient is interviewed in observation room. The patient endorses "Good." Denies SI. Denies HI. Denies AVH. Juan was able to formulate a safety plan which includes going to the emergency room if symptoms return or worsen. Call [phone] or [phone] for immediate assistance if necessary. During his hospital stay, Juan receive multidisciplinary treatment he adhered to his medication regimen and has been pleasant and cooperative. He denies any suicidal ideation (SI), homicidal ideation (HI), auditory/visual hallucination (HI). Staff has reported no behavioral issues, and the patient has been sleeping well, adequate food intake, with no mood or behavioral changes noted. The decision to discharge Juan was made in consensus with the treatment team, including the criminal justice social worker, community center worker, and rn discharge on duty. The patient was E-Scribed a 30 day supply of medication. MENTAL STATUS EXAM APPEARANCE: APPROPRIATELY. DRESSED IN STREET CLOTHING. SPEECH: CIRCUMSTANCE EYE CONTACT: NORMAL AFFECT: CONGRUENT WITH MOOD MOOD: "GOOD" ORIENTATION IMPAIRMENT: NONE MEMORY IMPAIRMENT: NONE ATTENTION: NORMAL HALLUCINATIONS: NONE SUICIDALITY: NONE HOMICIDALITY: NONE DELUSIONS: NONE BEHAVIOR: COOPERATIVE JUDGMENT: FAIR INSIGHT: FAIR Continue Current Inpatient Psychotropic Regimen @ home Follow-Up with Psychiatric Provider Safety Plan Discussed DISCHARGE CONDITION: His readiness for discharge is supported by his stable mental status, adherence to treatment, and proactive approach to managing his mental health. Denies SI. Denies HI. Denies A/V/H. The patient has been informed to continue follow-up care to ensure ongoing support and monitoring. Patient discharged to home. *Problems/Diagnosis: (1) Depression Status: Acute (2) Suicidal ideation Status: Acute Total Time Spent on D/C: Up to 30 Minutes Counseling Services Smoking & Tobacco Cessation: N/A CODING VISIT-PSYCHIATRY Date of Service: Apr 22, 2025 Billing Provider: AILYN NEVAREZ APRN Psych Common Visit Codes: 92590-WOE/OBS DISCH DAY <30min Problem Qualifiers (1) Depression: AILYN NEVAREZ APRN Apr 23, 2025 18:49
== END 2025-04-22 10:05 | disposition home or self-care (01) | DRG 754 ==
LOC: ER 13:09 → ED HOLD 18:25 → ADULT MH 21:51
PROVIDERS: ADMIT Psychiatry & Neurology Psychiatry; ATTEND Psychiatry & Neurology Psychiatry
DX: F32.9 Major depressive disorder, single episode, unspecified (principal); R45.851 Suicidal ideations; F19.90 Other psychoactive substance use, unspecified, uncomplicated; R73.03 Prediabetes; F43.10 Post-traumatic stress disorder, unspecified; Z20.822 Contact with and (suspected) exposure to COVID-19; I10 Essential (primary) hypertension; F41.9 Anxiety disorder, unspecified; G47.00 Insomnia, unspecified; Z59.00 Homelessness unspecified; Z79.899 Other long term (current) drug therapy; Z83.2 Family history of diseases of the blood and blood-forming organs and certain disorders involving the immune mechanism
CPT/HCPCS: 36415; 70450; 70490; 80048; 80053; 80061; 80305; 80320; 80329; 81001; 83036; 84443; 85025; 87081; 87811; 99285; A6250; Q0161; Q0163; Q0177

== ENCOUNTER 2025-04-27 19:45 | Emergency (ER) | payer MEDICAID ==
[~2025-04-27] VITALS: Ht 175.3 cm; Wt 142.4 kg
[~2025-04-27 19:45] MED LIST changes: +LAMO-24 PO; +LEVE500T PO; +LOSA-416 PO; -LOSA50TA64 PO; +PRAZ1CAP5 PO; +TIRZ2.5P3 SQ; +TRAZ-251 PO
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
[2025-04-27 21:19] LABS: LEUKOCYTE ESTERASE ,URINE NEGATIVE (Neg); NITRITES, URINE NEGATIVE (Neg); OCCULT BLOOD,URINE NEGATIVE (Neg)
[2025-04-27 21:20] LABS: UA COLLECTION TYPE URINAL
[2025-04-27 21:37] LABS: URINE AMPHETAMINE SCREEN NEGATIVE (Neg); URINE BARBITUATE SCREEN NEGATIVE (Neg); URINE BENZODIAZEPINES SCREEN NEGATIVE (Neg); URINE CANNABINOID SCREEN POSITIVE (Neg); URINE COCAINE SCREEN NEGATIVE (Neg); URINE METHADONE SCREEN NEGATIVE (Neg); URINE OPIATE SCREEN NEGATIVE (Neg); URINE PHENCYCLIDINE SCREEN NEGATIVE (Neg)
[2025-04-27 21:38] LABS: MEAN PLATELET VOLUME 8.5 FL (7.4-10.4); RED CELL DISTRIBUTION WIDTH 15.2 % (11.5-14.5)
[2025-04-27 22:01] LABS: CREATININE 1.03 MG/DL (0.60-1.10); ETHANOL < 10 MG/DL (<10); TOTAL CARBON DIOXIDE 22.3 MMOL/L (24-32); eCRCL 106 ML/MIN; eGFR 85 ML/MIN
[2025-04-27] MEDS ORDERED: QUET50TA24 PO (23:34)
[2025-04-27] MEDS ORDERED: PRAZ2CAP2 PO (23:34)
[2025-04-27] MEDS ORDERED: LOSA50TA64 PO (23:34)
[2025-04-27] MEDS ORDERED: LEVE-21 PO (23:39)
[2025-04-27] MEDS ORDERED: TRAZ-251 PO (23:39)
[2025-04-27] MEDS ORDERED: LAMO-24 PO (23:39)
[2025-04-27] MEDS ORDERED: PRAZ1CAP5 PO (23:39)
[2025-04-28 21:35] VITALS: BP 138/78; PULSE 70; RESP 16; TEMP 97.8; O2SAT 98
[2025-05-01] MEDS ORDERED: TIRZEPATIDE 2.5 MG/0.5 ML SQ SCH (08:00)
== END 2025-04-28 20:38 ==
LOC: ER 19:46
DX: F99 Mental disorder, not otherwise specified (principal); F32.A Depression, unspecified; Z79.899 Other long term (current) drug therapy; Z20.822 Contact with and (suspected) exposure to COVID-19
CPT/HCPCS: 36415; 80048; 80076; 80305; 80320; 81003; 84443; 85025; 87811; 99285

== ENCOUNTER 2025-05-04 11:15 | Outpatient (CLI) | payer MEDICAID ==
[~2025-05-04 11:15] MED LIST changes: +LEVE-21 PO; -LEVE500T PO; -LOSA-416 PO; +LOSA50TA64 PO; +QUET50TA24 PO
--- NOTE | 2025-05-05 05:40 | PROCEDURE NOTE ---
Procedure Note Providers to CC ~ Interpretation: [place] EEG Note # Demographics Type of EEG Read: - Routine EEG - video Patient Location: Outpatient First Name: Juan Last Name: Ana Lilia Date of : 1995 Age: 30 Gender: Male Facility: [facility] Time of Initial Page (): 05/04/2025 12:27 Time of Return Call (Hooper Time): 05/04/2025 12:30 # EEG Interpretation Start Time of EEG Read (Hooper ): 05/04/2025 12:00 Stop Time of EEG Read (Hooper ): 05/04/2025 12:21 Duration: 0h 21m Technical Details: - This study was recorded using the Entrec EEG software - The EEG electrodes were placed using the standard International 10-20 system of electrode placement. Video and an accessory EKG lead were used during the course of this study. Indication: - seizure # Description Photic Stimulation: Performed Hyperventilation: performed Phases Captured: - awake - drowsy Symmetry: symmetric Posterior Dominant Rhythm: - present, attenuates on eye opening 11Hz Predominant Frequencies: - posterior dominant alpha (8-12 Hz) - abundant (50-89%) Superimposed Frequencies: - theta (4-7 Hz) - rare (<1%) Amplitude: normal Reactivity: yes Variability: yes Continuity: continuous # Abnormalities Stimulation: - photic stimulation does NOT cause abnormalities - hyperventilation does NOT cause abnormalities Epileptiform Abnormalities: - NOT present Focal Slowing: no Seizure: - NOT present Artifact: Patient with brief noted R leg and L arm twitching without abnormal electrographic correlate. # Impression Impression: normal # Clinical Correlation Clinical Correlation: This is a normal EEG in the awake and drowsy state. No epileptiform discharges, focal slowing, or seizures were seen. A normal EEG does not exclude nor support the diagnosis of epilepsy. # Demographics First Name: Juan Last Name: Ana Lilia Facility: [facility] MOSHE DAVIS MD May 05, 2025 05:40
== END 2025-05-04 23:59 | disposition home or self-care (01) ==
LOC: RAD 11:15
PROVIDERS: ATTEND Nurse Practitioner Family
DX: R56.9 Unspecified convulsions (principal)
CPT/HCPCS: 95816